=== PATIENT | male | born 1970 | race African-American/Black ===

== ENCOUNTER 2018-03-22 10:01 | Emergency (ER) | payer OTHER ==
[~2018-03-22] VITALS: Ht 180.3 cm; Wt 85.0 kg
[2018-03-22 11:45] LABS: HEMATOCRIT. 36.1 % (42.0-52.0); HEMOGLOBIN. 12.3 g/dL (14.0-18.0); MEAN CORPUSCULAR HEMOGLOBIN 32.2 pg (28.0-32.0); MEAN CORPUSCULAR VOLUME 94.5 fL (80.0-94.0); MEAN PLATELET VOLUME 10.3 fl (7.4-10.4); PLATELET 195 x1000/uL (130-400); RED BLOOD CELL COUNT 3.82 mill/uL (4.7-6.1); RED CELL DISTRIBUTION WIDTH 14.1 % (11.6-14.6)
[2018-03-22 11:57] LABS: CHLORIDE 101 mEq/L (98-107)
[2018-03-22] MEDS ORDERED: OXYCODONE HCL 5MG TABLET PO ONE (13:00)
[2018-03-22 13:15] LABS: PLATELET ESTIMATE NORMAL
[2018-03-22] MEDS ORDERED: ASPIRIN 81MG TABLET PO ONE (15:00)
[2018-03-22] MEDS ORDERED: NITROGLYCERIN OINT 1GM/INCH UDPKT TD ONE (15:00)
[2018-03-22 16:21] VITALS: BP 126/82
== END 2018-03-22 16:46 | disposition home or self-care (01) ==
LOC: ER 10:01 → CANRESERV 16:02 → ENRESERV 16:02 → CANBEDREQ 16:16 → ER 16:46
DX: G89.21 Chronic pain due to trauma (principal); R07.89 Other chest pain; R60.0 Localized edema; D64.9 Anemia, unspecified; F12.10 Cannabis abuse, uncomplicated; F15.10 Other stimulant abuse, uncomplicated; E11.9 Type 2 diabetes mellitus without complications; I10 Essential (primary) hypertension; F17.200 Nicotine dependence, unspecified, uncomplicated; Z59.0 Homelessness; Z98.890 Other specified postprocedural states; Z87.828 Personal history of other (healed) physical injury and trauma; Z88.2 Allergy status to sulfonamides
CPT/HCPCS: 36415; 71045; 83880; 84484; 93005; 93971; 99284